=== PATIENT | male | born 1990 | race Caucasian/White ===

== ENCOUNTER → 2016-12-30 | Outpatient (CLI) | payer OTHER ==
--- NOTE | 2016-12-31 11:00 | XR ---
Fourth digit left hand HISTORY: Crush injury 2 views of the fourth digit of the left hand. No comparisons Frontal view shows a lucency at the tuft at its lateral aspect which may represent a nondisplaced fra cture. There is soft tissue swelling. No dislocation. IMPRESSION: Possible nondisplaced tuft fracture fourth digit. Follow-up as indicated.
== END | disposition home or self-care (01) ==
LOC: RADXRYALE 13:42
PROVIDERS: ATTEND Physician Assistant Medical
DX: S60.142A Contusion of left ring finger with damage to nail, initial encounter (principal); X58.XXXA Exposure to other specified factors, initial encounter

== ENCOUNTER → 2017-04-07 | Outpatient (CLI) | payer OTHER ==
--- NOTE | 2017-04-08 08:05 | XR ---
EXAMINATION TYPE: XR hand complete RT DATE OF EXAM: 04/07/2017 COMPARISON: NONE HISTORY: Pain TECHNIQUE: Three views are submitted. FINDINGS: The osseous structures are intact. The joint spaces are preserved and there is no acute fracture or dislocation. IMPRESSION: 1. No definite acute fracture or dislocation if symptoms persist, follow-up study in 7 to 10 days wo uld be suggested
== END | disposition home or self-care (01) ==
LOC: RADXRYALE 10:28
PROVIDERS: ATTEND Physician Assistant Medical
DX: S69.91XA Unspecified injury of right wrist, hand and finger(s), initial encounter (principal)